=== PATIENT | male | born 1955 | race Caucasian/White ===

== ENCOUNTER → 2016-10-10 | Outpatient (CLI) | payer OTHER | END | disposition home or self-care (01) | LOC: C.LABSPEC 17:28 → C.PATHSPEC 17:38 | PROVIDERS: ATTEND Nurse Practitioner Family | DX: R31.0 Gross hematuria (principal); R82.8 Abnormal findings on cytological and histological examination of urine ==

== ENCOUNTER → 2016-10-17 | Outpatient (CLI) | payer OTHER ==
[~2016-10-17] MED LIST: OPTIRAY 320 IV PRN
--- NOTE | 2016-10-17 08:24 | DIAGNOSTIC IMAGING REPORT ---
ABDOMEN AND PELVIS CT EXAMINATION PRE AND POST INTRAVENOUS CONTRAST CT DOSE: 3177.25 mGy.cm HISTORY: Hematuria hematuria TECHNIQUE: Multiaxial CT images of the abdomen and pelvis were performed pre and post intravenous contrast enhancement. COMPARISON STUDY: None. FINDINGS: Lung bases are clear. The unenhanced component of the study shows no abnormal calcifications of the urinary tracts. There is Nodule lateral aspect upper pole right kidney measuring 1.2 cm. Density characteristics indicate a simple cyst. Several additional sub-5 mm cysts are present. These are too small to quantify. A significant space-occupying lesions of the upper urinary tracts is not appreciated. Bowel pattern is nonobstructive. Ureters normal in course and caliber. Bladder fills well with no sign deformity or filling defect. There is no significant abdominal pelvic or inguinal adenopathy. IMPRESSION: 1. Several small cysts of the kidneys. 2. Study of the urinary tracts is otherwise negative. 3. Otherwise no acute process of the abdomen or pelvis. Electronically signed by: Jay Gloria M.D. 10/17/2016 8:23 AM Dictated Date/Time: 10/17/2016 8:05 AM
== END | disposition home or self-care (01) ==
LOC: C.CTS 07:30
PROVIDERS: ATTEND Nurse Practitioner Family
DX: R31.0 Gross hematuria (principal); N28.1 Cyst of kidney, acquired

== ENCOUNTER 2018-08-24 15:46 | Observation (INO) ==
[2018-08-24] MEDS ORDERED: SODIUM CHLORIDE 0.9% 1000ML 500 ML IV ONE (16:18)
[2018-08-24 16:56] LABS: Basophils # (auto) 0.03 K/uL (0-0.2); Basophils % (auto) 0.4 %; Eosinophils # (auto) 0.03 K/uL (0-0.5); Eosinophils % (auto) 0.4 %; Hematocrit (blood only) 44.7 % (42-52); Hemoglobin 15.5 g/dL (14.0-18.0); Immature Granulocytes # (auto) 0.02 K/uL (0.00-0.02); Immature Granulocytes % (auto) 0.2 %; Lymphocytes # (auto) 1.75 K/uL (1.2-3.4); Lymphocytes % (auto) 20.8 %; Mean Corpuscular Hgb Conc 34.7 g/dL (32-36); Mean Corpuscular Volume 84.2 fL (80-100); Mean Platelet Volume 9.2 fL (7.4-10.4); Monocytes # (auto) 0.68 K/uL (0.11-0.59); Monocytes % (auto) 8.1 %; Neutrophils # (auto) 5.91 K/uL (1.4-6.5); Neutrophils % (auto) 70.1 %; Platelet Count 197 K/uL (130-400); RDW Coefficient of Variation 13.1 % (11.5-14.5); RDW Standard Deviation 39.4 fL (36.4-46.3); Red Blood Count 5.31 M/uL (4.7-6.1); White Blood Count 8.42 K/uL (4.8-10.8)
[2018-08-24 17:05] LABS: Partial Thromboplastin Ratio 0.9; Partial Thromboplastin Time 23.9 Seconds (21.0-31.0); Prothrombin Time 10.2 Seconds (9.0-12.0)
[2018-08-24 17:15] LABS: BUN Creatinine Ratio 12.3 (10-20); Calcium 9.4 mg/dl (8.5-10.1); Creatinine Clr Calc Pharmacy 105.6 ml/min; Est GFR (African American) 98.5; Potassium 3.5 mmol/L (3.5-5.1)
--- NOTE | 2018-08-24 17:21 | CT Scan Report ---
CT OF THE ABDOMEN AND PELVIS WITHOUT CONTRAST CLINICAL HISTORY: Hematuria. COMPARISON STUDY: CT of the abdomen and pelvis October 17, 2016. TECHNIQUE: Axial images of the abdomen and pelvis were obtained without IV contrast. Images were revi ewed in the axial, sagittal, and coronal planes. Automated exposure control was utilized for the hema dy. A dose lowering technique was utilized adhering to the principles of ALARA. FINDINGS: No renal, ureteral or bladder calculi are identified. There is no hydronephrosis or hydrour eter. Sensitivity for detection of urothelial lesions is diminished on this unenhanced examination. E valuation of the abdomen and pelvis is suboptimal on this unenhanced exam. A 1.7 cm lesion within the midpole the right kidney likely reflects a hyperdense cyst within correlating with prior contrast en hanced exam of October 17, 2016. There is a probable cyst within the lower pole the right kidney. The l iver, spleen, right adrenal gland and pancreas are unremarkable. 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 There is no evidence for a bowel obstruction. The appendix is nor mal. There is no ascites or lymphadenopathy. No suspicious osseous lesion is noted. Multilevel degene rative changes within the lumbar spine are incidentally noted. IMPRESSION: 1. No urinary calculi or hydronephrosis. 2. Decreased sensitivity for detection of urothelial lesions on this unenhanced exam. 3. No acute process within the abdomen or pelvis. No bowel obstruction. Normal appendix. Electronically signed by: Kimo Ramos M.D. 08/24/2018 5:20 PM
[2018-08-24 18:19] LABS: Appearance Urine Cloudy (Clear); Bilirubin Urine Negative (Negative); Color Urine Red; Glucose Urine UA Negative (Negative); Ketones Urine Negative (Negative); Leukocyte Esterase Urine Negative (Negative); Nitrite Urine Negative (Negative); Urobilinogen Urine Negative (Negative); pH Urine 7.5 (4.5-7.5)
[2018-08-24 18:24] LABS: Protein Urine 3+ (Negative)
[2018-08-24 18:31] LABS: Bacteria Urine Negative (Negative); RBC Urine >30 /hpf (0-4)
[2018-08-24 18:32] LABS: Renal Epithelial Cells Urine 0-5 /lpf (0-5)
[2018-08-24] MEDS ORDERED: SODIUM CHLORIDE 0.9% 1000ML 1,000 ML IV SCH (19:00)
--- NOTE | 2018-08-24 20:19 | Emergency Department Note ---
Entered by Andressa Walker acting as a scribe for History of Present Illness General Chief complaint: Hematuria Stated complaint: BLOOD IN URINE Time Seen by Provider: 08/24/18 16:04 Source: patient and other (geriatric nurse) Mode of arrival: wheelchair Limitations: other (patient's history of mental retardation) History of Present Illness Onset (ago): day(s) 5 Location: pelvis Radiation: non-radiation Pain Consistency: + intermittent Relieved By: + medication Exacerbated By: + none Associated symptoms: no fever/chills The patient is a 63 year old male who presents to the Emergency Room with complaints of hematuria for the past 5 days. He is accompanied by his geriatric nurse. She denies any recent fevers or vomiting. The patient was started on Doxycycline by his Urologist Dr. Contreras 4 days ago, and his geriatric nurse states the hematuria did clear up for a few days, but came back today, so they came here. HPI was given by the geriatric nurse, HPI is limited secondary to patient 's baseline mental status. Home Medications Home Medications Medication Instructions Recorded Confirmed Type aspirin [Aspirin Low Dose] 81 mg PO DAILY 08/24/18 08/24/18 History buspirone 10 mg PO TID 08/24/18 08/24/18 History calcium carbonate-vitamin D3 1 tab PO BID 08/24/18 08/24/18 History [Calcium 600 + D(3)] ciprofloxacin HCl 500 mg PO BID 08/24/18 08/24/18 History esomeprazole magnesium 40 mg PO DAILY 08/24/18 08/24/18 History hydrochlorothiazide 12.5 mg PO DAILY 08/24/18 08/24/18 History isosorbide mononitrate 30 mg PO HS 08/24/18 08/24/18 History magnesium oxide 400 mg PO DAILY 08/24/18 08/24/18 History metoprolol tartrate 12.5 mg PO BID 08/24/18 08/24/18 History nitroglycerin 0.4 mg SUBLINGUAL UD 08/24/18 08/24/18 History oxcarbazepine 150 mg PO TID 08/24/18 08/24/18 History polysaccharide iron complex 150 mg PO BID 08/24/18 08/24/18 History [iFerex 150] sennosides [Senna Lax] 8.6 mg PO BID 08/24/18 08/24/18 History simvastatin 20 mg PO DAILY 08/24/18 08/24/18 History sodium chloride-aloe vera [Howard 1 spray INTRANASAL HS 08/24/18 08/24/18 History Saline Gel] tamsulosin 0.4 mg PO HS 08/24/18 08/24/18 History Allergies Allergy/AdvReac Type Severity Reaction Status Date / Time No Known Allergies Allergy Unverified 08/24/18 17:21 Past Med/Surg History Medical History UTI (urinary tract infection) Social History Feels Safe at Home: Yes Smoking Status: Never smoker Review of Systems See HPI for pertinent positives & negatives. Other (ROS is limited secondary to patients history of mental retardation) Physical Exam Vital Signs Vital Signs - 24 hr 08/24/18 16:06 08/24/18 17:40 08/24/18 19:24 Temperature 37.2 C Temperature Source Oral Sepsis Recent Fever Within 48 Hours No Sepsis New/Unexplained Change in Mental Status No Sepsis Action Taken by Nursing No Action Required Pulse Rate 69 Pulse Rate [Finger] 68 78 Pulse Rhythm Regular Pulse Rhythm [Finger] Regular Regular Pulse Strength Normal Pulse Strength [Finger] Normal Normal Respiratory Rate 18 18 18 Respiratory Effort / Characteristics Non-Labored Spontaneous Non-Labored Spontaneous Non-Labored Spontaneous Respiratory Depth Normal Normal Normal Respiratory Pattern Regular Regular Regular Blood Pressure 144/78 H Blood Pressure [Right Arm] 115/64 127/81 Blood Pressure Mean 100 Blood Pressure Mean [Right Arm] 81 96 Blood Pressure Position Sitting Blood Pressure Position [Right Arm] Sitting Pulse Oximetry 97 98 97 Oxygen Delivery Method Room Air Room Air Room Air 08/24/18 20:11 Temperature Temperature Source Sepsis Recent Fever Within 48 Hours Sepsis New/Unexplained Change in Mental Status Sepsis Action Taken by Nursing Pulse Rate Pulse Rate [Finger] 79 Pulse Rhythm Pulse Rhythm [Finger] Regular Pulse Strength Pulse Strength [Finger] Normal Respiratory Rate 18 Respiratory Effort / Characteristics Non-Labored Respiratory Depth Normal Respiratory Pattern Blood Pressure Blood Pressure [Right Arm] 155/81 H Blood Pressure Mean Blood Pressure Mean [Right Arm] 105 Blood Pressure Position Blood Pressure Position [Right Arm] Pulse Oximetry 94 Oxygen Delivery Method Room Air GENERAL: He does not appear distressed. HENT: Exam performed. - Head: Normocephalic and atraumatic. - Right Ear: External ear normal. No mastoid tenderness. - Left Ear: External ear normal. No mastoid tenderness. - Mouth/Throat: The oropharynx is clear and moist. No trismus in the jaw. No dental abscesses or uvula swelling. No oropharyngeal exudate or tonsillar abscesses. EYES: Conjunctivae and EOM are normal. Pupils are equal, round, and reactive to light. Right eye exhibits no discharge. Left eye exhibits no discharge. No scleral icterus. NECK: Normal range of motion. Neck supple. No JVD present. No spinous process tenderness present. No carotid bruit present. No rigidity. No tracheal deviation and normal range of motion present. No Brudzinski's sign and no Kernig 's sign noted. CV: Normal rate, regular rhythm, normal heart sounds and intact distal pulses. There is no peripheral edema. Palpable radial pulses bue. PULM/CHEST: Effort normal and breath sounds normal. No respiratory distress. No stridor. He has no wheezes. He has no rales. - Chest Wall: He exhibits no tenderness. ABD: The abdomen is soft. Bowel sounds are normal. He has no distension. No mass is present. There is no tenderness. There is no rebound, no guarding, no Krishna's sign and no tenderness at McBurney's point. Rovsig negative. No CVA tenderness. : No pain on palpation of either testicle. There is mild dry blood coming from the urethral meatus. MUSC/SKEL: Normal range of motion. There is no peripheral edema, tenderness or deformity. LYMPH: No cervical adenopathy. NEURO: The patient is at his normal baseline, motor and sensation are grossly intact. SKIN: Skin is warm and dry. He is not diaphoretic. Course 161: Past medical records reviewed. The patient was evaluated in room C2, and a complete history and physical examination were performed. 1803: Nursing informed me the patient is having pure hematuria. 1924: I discussed the patients case with Dr. Livingston, Urology. We are both in agreement the patient remain on his antibiotic, rest and drink plenty of fluids. We both agree that no catheter should be placed at this time as the patient is able to pass urine, not passing clots, and given his history of the DDMR there is high risk this would irritate the patient more and he is at risk for pulling out a catheter causing further damage and hematuria. I reevaluated the patient. His vitals are stable. He is continuing to pass bright red blood. Labs are within normal limits with exception of urine which shows blood. Sodium is 129. Given his hematuria and hyponatremia, the patient will be admitted to the hospital service. I discussed the patients case with Dr. Hartman, [facility] Hospitalist. The patient will be further evaluated. Consultations Consultation #1: I discussed the patients case with Dr. Livingston, Urology. We are both in agreement the patient remain on his antibiotic, rest and drink plenty of fluids. We agree the patient will be admitted to the hospital medicine service as he is not comfortable going home. Time: 18:43 Consultation #2: I discussed the patients case with Dr. Hartman, [facility] Hospitalist. The patient will be further evaluated. Time: 19:25 Administered Medications Sodium Chloride (Nss 1000ml) 1,000 mls @ 125 mls/hr IV .Q8H FREDY Stop: 09/23/18 18:59 Last Admin: 08/24/18 19:21 Dose: 125 mls/hr Discontinued Medications Sodium Chloride (Nss 1000ml) 500 mls @ 999 mls/hr IV .Q31M ONE Stop: 08/24/18 16:48 Last Infusion: 08/24/18 17:32 Dose: 0 mls/hr Admin: 08/24/18 17:01 Dose: 999 mls/hr Medical Decision Making Medical Records Attestation: I reviewed the patient's medical records. Home Medications Current Medication List: was personally reviewed by me Laboratory Data Attestation: I reviewed the patient's lab results. Result diagrams: 08/24/18 16:45 08/24/18 16:45 Lab Results 08/24/18 08/24/18 08/24/18 Range/Units 16:45 16:45 16:45 WBC 8.42 (4.8-10.8) K/uL RBC 5.31 (4.7-6.1) M/uL Hgb 15.5 (14.0-18.0) g/dL Hct 44.7 (42-52) % MCV 84.2 (80-100) fL MCH 29.2 (25-34) pg MCHC 34.7 (32-36) g/dL RDW Std Deviation 39.4 (36.4-46.3) fL RDW Coeff of Mau 13.1 (11.5-14.5) % Plt Count 197 (130-400) K/uL MPV 9.2 (7.4-10.4) fL Immature Gran % (Auto) 0.2 % Neut % (Auto) 70.1 % Lymph % (Auto) 20.8 % [place] % (Auto) 8.1 % Eos % (Auto) 0.4 % Baso % (Auto) 0.4 % Immature Gran # (Auto) 0.02 (0.00-0.02) K/uL Neut # (Auto) 5.91 (1.4-6.5) K/uL Lymph # (Auto) 1.75 (1.2-3.4) K/uL [place] # (Auto) 0.68 H (0.11-0.59) K/uL Eos # (Auto) 0.03 (0-0.5) K/uL Baso # (Auto) 0.03 (0-0.2) K/uL PT 10.2 (9.0-12.0) Seconds INR 1.0 (0.9-1.1) APTT 23.9 (21.0-31.0) Seconds PTT Ratio 0.9 Sodium 129 L (136-145) mmol/L Potassium 3.5 (3.5-5.1) mmol/L Chloride 90 L (98-107) mmol/L Carbon Dioxide 30 (21-32) mmol/L Anion Gap 9.0 (3-11) BUN 12 (7-18) mg/dl Creatinine 0.96 (0.6-1.4) mg/dl Est Cr Clr Drug Dosing 105.6 ml/min Est GFR ( Amer) 98.5 Est GFR (Non-Af Amer) 85.0 BUN/Creatinine Ratio 12.3 (10-20) Glucose 114 H (70-99) mg/dl Lactate (0.4-2.0) mmol/L Calcium 9.4 (8.5-10.1) mg/dl Lipase 105 (73-393) U/L Urine Color Urine Appearance (Clear) Urine pH (4.5-7.5) Ur Specific [place] (1.000-1.030) Urine Protein (Negative) Urine Glucose (UA) (Negative) Urine Ketones (Negative) Urine Blood (Negative) Urine Nitrite (Negative) Urine Bilirubin (Negative) Urine Urobilinogen (Negative) Ur Leukocyte Esterase (Negative) Urine RBC (0-4) /hpf Urine WBC (0-5) /hpf Ur Epithelial Cells (0-5) /lpf Ur Renal Epithelial Cell (0-5) /lpf Urine Bacteria (Negative) 08/24/18 08/24/18 Range/Units 16:45 18:00 WBC (4.8-10.8) K/uL RBC (4.7-6.1) M/uL Hgb (14.0-18.0) g/dL Hct (42-52) % MCV (80-100) fL MCH (25-34) pg MCHC (32-36) g/dL RDW Std Deviation (36.4-46.3) fL RDW Coeff of Mau (11.5-14.5) % Plt Count (130-400) K/uL MPV (7.4-10.4) fL Immature Gran % (Auto) % Neut % (Auto) % Lymph % (Auto) % [place] % (Auto) % Eos % (Auto) % Baso % (Auto) % Immature Gran # (Auto) (0.00-0.02) K/uL Neut # (Auto) (1.4-6.5) K/uL Lymph # (Auto) (1.2-3.4) K/uL [place] # (Auto) (0.11-0.59) K/uL Eos # (Auto) (0-0.5) K/uL Baso # (Auto) (0-0.2) K/uL PT (9.0-12.0) Seconds INR (0.9-1.1) APTT (21.0-31.0) Seconds PTT Ratio Sodium (136-145) mmol/L Potassium (3.5-5.1) mmol/L Chloride (98-107) mmol/L Carbon Dioxide (21-32) mmol/L Anion Gap (3-11) BUN (7-18) mg/dl Creatinine (0.6-1.4) mg/dl Est Cr Clr Drug Dosing ml/min Est GFR ( Amer) Est GFR (Non-Af Amer) BUN/Creatinine Ratio (10-20) Glucose (70-99) mg/dl Lactate 1.3 (0.4-2.0) mmol/L Calcium (8.5-10.1) mg/dl Lipase (73-393) U/L Urine Color Red Urine Appearance Cloudy H (Clear) Urine pH 7.5 (4.5-7.5) Ur Specific [place] 1.020 (1.000-1.030) Urine Protein 3+ H (Negative) Urine Glucose (UA) Negative (Negative) Urine Ketones Negative (Negative) Urine Blood 3+ H (Negative) Urine Nitrite Negative (Negative) Urine Bilirubin Negative (Negative) Urine Urobilinogen Negative (Negative) Ur Leukocyte Esterase Negative (Negative) Urine RBC >30 H (0-4) /hpf Urine WBC 10-30 H (0-5) /hpf Ur Epithelial Cells 0-5 (0-5) /lpf Ur Renal Epithelial Cell 0-5 (0-5) /lpf Urine Bacteria Negative (Negative) Imaging Data Radiologist's Impression: Radiology results as stated below per my review and the radiologist's interpretation: CT OF THE ABDOMEN AND PELVIS WITHOUT CONTRAST CLINICAL HISTORY: Hematuria. COMPARISON STUDY: CT of the abdomen and pelvis October 17, 2016. TECHNIQUE: Axial images of the abdomen and pelvis were obtained without IV contrast. Images were reviewed in the axial, sagittal, and coronal planes. Automated exposure control was utilized for the study. A dose lowering technique was utilized adhering to the principles of ALARA. FINDINGS: No renal, ureteral or bladder calculi are identified. There is no hydronephrosis or hydroureter. Sensitivity for detection of urothelial lesions is diminished on this unenhanced examination. Evaluation of the abdomen and pelvis is suboptimal on this unenhanced exam. A 1.7 cm lesion within the midpole the right kidney likely reflects a hyperdense cyst within correlating with prior contrast enhanced exam of October 17, 2016. There is a probable cyst within the lower pole the right kidney. The liver, spleen, right adrenal gland and pancreas are unremarkable. 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 There is no evidence for a bowel obstruction. The appendix is normal. There is no ascites or lymphadenopathy. No suspicious osseous lesion is noted. Multilevel degenerative changes within the lumbar spine are incidentally noted. IMPRESSION: 1. No urinary calculi or hydronephrosis. 2. Decreased sensitivity for detection of urothelial lesions on this unenhanced exam. 3. No acute process within the abdomen or pelvis. No bowel obstruction. Normal appendix. Electronically signed by: Kimo Ramos M.D. 08/24/2018 5:20 PM Blood Pressure Blood Pressure Findings: Normal blood pressure Blood Pressure Disposition: further management by hospitalist [facility] Narrative I discussed the patients case with Dr. Livingston, Urology. We are both in agreement the patient remain on his antibiotic, rest and drink plenty of fluids. We both agree that no catheter should be placed at this time as the patient is able to pass urine, not passing clots, and given his history of the DDMR there is high risk this would irritate the patient more and he is at risk for pulling out a catheter causing further damage and hematuria. I reevaluated the patient. His vitals are stable. He is continuing to pass bright red blood. Labs are within normal limits with exception of urine which shows blood. Sodium is 129. Given his hematuria and hyponatremia, the patient will be admitted to the hospital service. I discussed the patients case with Dr. Hartman, [facility] Hospitalist. The patient will be further evaluated. Impression & Plan Hyponatremia, Hematuria Discharge Plan Visit Data Chief Complaint: Hematuria Stated Complaint: BLOOD IN URINE ED Provider: Emilio Farrell Discharge Problem: Hyponatremia, Hematuria Patient Disposition: Being Evaluated by Hospitalist Forms Stand Alone Forms: My [facility] Prescriptions Prescriptions: No Action oxcarbazepine 150 mg tablet 150 mg PO TID RF: 0 sennosides [Senna Lax] 8.6 mg Tablet 8.6 mg PO BID RF: 0 polysaccharide iron complex [iFerex 150] 150 mg iron Capsule 150 mg PO BID RF: 0 isosorbide mononitrate 30 mg Tablet Extended Release 24 Hr 30 mg PO HS RF: 0 ciprofloxacin HCl 500 mg tablet 500 mg PO BID RF: 0 aspirin [Aspirin Low Dose] 81 mg Tablet,Delayed Release (Dr/Ec) 81 mg PO DAILY RF: 0 tamsulosin 0.4 mg capsule 0.4 mg PO HS RF: 0 simvastatin 20 mg Tablet 20 mg PO DAILY RF: 0 esomeprazole magnesium 40 mg capsule,delayed release(DR/EC) 40 mg PO DAILY RF: 0 buspirone 10 mg tablet 10 mg PO TID RF: 0 hydrochlorothiazide 12.5 mg Capsule 12.5 mg PO DAILY RF: 0 nitroglycerin 0.4 mg Tablet, Sublingual 0.4 mg Sublingual UD RF: 0 metoprolol tartrate 25 mg tablet 12.5 mg PO BID RF: 0 sodium chloride-aloe vera [Howard Saline Gel] [place]on,Non-Aerosol 1 spray INTRANASAL HS RF: 0 calcium carbonate-vitamin D3 [Calcium 600 + D(3)] 600 mg(1,500mg) -400 unit Tablet 1 tab PO BID RF: 0 magnesium oxide 400 mg magnesium Tablet 400 mg PO DAILY RF: 0 Referrals Referrals: Bubba Howard [Primary Care Provider] - The scribe's documentation has been prepared under my direction and personally reviewed by me in its entirety. I confirm that the note above accurately reflects all work, treatment, procedures, and medical decision making performed by me.
--- NOTE | 2018-08-24 21:31 | History & Physical Report ---
Date of Service August 24, 2018 Assessment & Plan (1) Hematuria: Patient with history of the same. Follows with Urology. He is on ASA daily. Per report, larger amount of hematuria today than before. Patient is hemodynamically stable. H/H = 15.5/44.7, passing urine without difficulty. Ddx to include infection, malignancy. -Observation to medical floor -Monitor CBC -Monitor strict I/Os - will place Garza if patient is unable to spontaneously void -Hold ASA -Urology consultation - appreciate assistance with this case. Will keep patient NPO after midnight in case of cystoscopy in AM Present on Admission?: Yes (2) UTI (urinary tract infection): Patient presently being treated for UTI with Cipro 500mg po BID x 7 day course (today is day #3/7. Course to end on 08/28/18). -Continue Cipro 500mg po BID (3) Hyponatremia: Moderate hyponatremia with Nh=658. No prior record of Na. Patient appears euvolemic on exam. No seizure. No change in mental status. Ddx to include SIADH, low solute intake, medication effects - patient is taking Busbirone, HCTZ and trileptal which can all contribute to hyponatremia. He was given NSS in the ER which may skew lab results. -Check urine and serum osm -Check urine electrolytes -Repeat chemistry in AM -Hold HCTZ for now Present on Admission?: Yes (4) Hypertension: Blood pressure presenlty controlled, 115/64 -Hold Metoprolol for now in setting of bleed -Hold HCTZ -Continue Imdur Present on Admission?: Yes (5) Hyperlipidemia: Chronic -Continue Simvastatin (6) BPH (benign prostatic hyperplasia): Patient is passing urine without difficulty -Continue Flomax 0.4mg po daily (7) Intellectual disability: Patient with behavioral disturbance -Continue Trileptal 150mg po TID - this may need to be adjusted d/t hypoNa -Continue Buspirone - may need to be adjusted d/t hypoNa F/E/N - heplock, monitor electrolytes and replete as needed, continue PO Magnesium at home dose, Na management as above, NPO after midnight for possible cysto in AM Ppx - Low risk for DVT, encourage ambulation Code - Full Dispo -Admit to med-surge History of Present Illness Chief Complaint: Gross hematuria Primary Care Provider: Bubba Howard Patient is a 63yo male with history of BPH, HTN, HLP and developmental delay presenting with gross hematuria. Majority of history obtained through discussion with patient's case managers as patient is unable to provide reliable history. Per report, patient with a longstanding history of gross hematuria. He established care with Urology in October 2016. He follows with Dr. Contreras. Patient had a cystoscopy performed 26 Mar 2018 which revealed wide caliber thin urethral strictures x 2. Normal bladder without tumor or other abnormalities. No intervention was performed. Patient was seen by Dr. Contreras for a UTI. He was started on a 7-day course of Cipro 500mg po BID which started on 08/22/18. He had a large volume of gross hematuria on 08/22/18 causing him to leave his day program. On 08/23/18 no bleeding was reported. However, today patient again had gross hematuria that was not resolving. Patient is unable to say if clots were present. He denies fevers, chills, abdominal or flank pain. Denies dysuria or difficulty urinating. Denies CP, palpitations, dyspnea or dizziness. No additional complaints at this time. ER Course: NSS x 1500mL Allergies Allergy/AdvReac Type Severity Reaction Status Date / Time No Known Allergies Allergy Unverified 08/24/18 17:21 Home Medications Home Medications Medication Instructions Recorded Confirmed Type aspirin [Aspirin Low Dose] 81 mg PO DAILY 08/24/18 08/24/18 History buspirone 10 mg PO TID 08/24/18 08/24/18 History calcium carbonate-vitamin D3 1 tab PO BID 08/24/18 08/24/18 History [Calcium 600 + D(3)] ciprofloxacin HCl 500 mg PO BID 08/24/18 08/24/18 History esomeprazole magnesium 40 mg PO DAILY 08/24/18 08/24/18 History hydrochlorothiazide 12.5 mg PO DAILY 08/24/18 08/24/18 History isosorbide mononitrate 30 mg PO HS 08/24/18 08/24/18 History magnesium oxide 400 mg PO DAILY 08/24/18 08/24/18 History metoprolol tartrate 12.5 mg PO BID 08/24/18 08/24/18 History nitroglycerin 0.4 mg SUBLINGUAL UD 08/24/18 08/24/18 History oxcarbazepine 150 mg PO TID 08/24/18 08/24/18 History polysaccharide iron complex 150 mg PO BID 08/24/18 08/24/18 History [iFerex 150] sennosides [Senna Lax] 8.6 mg PO BID 08/24/18 08/24/18 History simvastatin 20 mg PO DAILY 08/24/18 08/24/18 History sodium chloride-aloe vera [[place] 1 spray INTRANASAL HS 08/24/18 08/24/18 History Saline Gel] tamsulosin 0.4 mg PO HS 08/24/18 08/24/18 History Past Med/Surg History Medical History Hematuria Cystoscopy performed March 2018. Urethral stricture x 2, normal bladder. Hyperlipidemia Hypertension BPH (benign prostatic hyperplasia) UTI (urinary tract infection) Intellectual disability No significant past surgical history Family History Other Family history non-contributory Social History Current Living Situation: Other Current Living Situation Comment: lives in senior care, has personal care aids 27/02 Other Information That Helps Us Care for You: No Feels Safe at Home: Yes Safety Concerns: Feels Safe At This Time Smoking Status: Never smoker Hx Alcohol Use: No Hx Substance Use: No Beliefs That Will Affect Care: None Preferred Language: Spanish Communication Ability: Impaired Silo Painter Required: No Review of Systems All systems reviewed & are unremarkable except as noted in HPI & below Physical Exam 2 Vital Signs (Past 24 Hours): Last Vital Signs Temp 37.2 C 08/24/18 16:06 Pulse 79 08/24/18 20:11 Resp 18 08/24/18 20:11 BP 155/81 H 08/24/18 20:11 Pulse Ox 94 08/24/18 20:11 Physical Exam: General: patient resting comfortably, NAD, non-toxic in appearance Skin: warm, dry, intact, no rashes or lesions HEENT: NC/AT, PERRL, EOMI, anicteric sclera, conjunctiva without injection, external ear normal to inspection and nontender, nares patent, moist mucus membranes, dentition intact, no oropharyngeal lesions, neck supple, trachea midline, no LAD, no thyromegaly, no JVD Heart: +S1/S2, regular, no m/r/g Lungs: equal air entry bilaterally, no rales/rhonchi/wheezes Abd: +BS, soft, NT/ND, no masses/organomegaly/ascites, no suprapubic tenderness , no flank pain, no penile bleeding Ext: warm, 2+ pulses in UE/LE bilaterally, no clubbing/cyanosis or edema Neuro: nonfocal, patient AA&O x 4, speech intact, no facial droop, moving all extremities on command with equal strength 5/5 Results & Data Laboratory Results Lab Results 08/24/18 08/24/18 08/24/18 Range/Units 16:45 16:45 16:45 WBC 8.42 (4.8-10.8) K/uL RBC 5.31 (4.7-6.1) M/uL Hgb 15.5 (14.0-18.0) g/dL Hct 44.7 (42-52) % MCV 84.2 (80-100) fL MCH 29.2 (25-34) pg MCHC 34.7 (32-36) g/dL RDW Std Deviation 39.4 (36.4-46.3) fL RDW Coeff of Mau 13.1 (11.5-14.5) % Plt Count 197 (130-400) K/uL MPV 9.2 (7.4-10.4) fL Immature Gran % (Auto) 0.2 % Neut % (Auto) 70.1 % Lymph % (Auto) 20.8 % [place] % (Auto) 8.1 % Eos % (Auto) 0.4 % Baso % (Auto) 0.4 % Immature Gran # (Auto) 0.02 (0.00-0.02) K/uL Neut # (Auto) 5.91 (1.4-6.5) K/uL Lymph # (Auto) 1.75 (1.2-3.4) K/uL [place] # (Auto) 0.68 H (0.11-0.59) K/uL Eos # (Auto) 0.03 (0-0.5) K/uL Baso # (Auto) 0.03 (0-0.2) K/uL PT 10.2 (9.0-12.0) Seconds INR 1.0 (0.9-1.1) APTT 23.9 (21.0-31.0) Seconds PTT Ratio 0.9 Sodium 129 L (136-145) mmol/L Potassium 3.5 (3.5-5.1) mmol/L Chloride 90 L (98-107) mmol/L Carbon Dioxide 30 (21-32) mmol/L Anion Gap 9.0 (3-11) BUN 12 (7-18) mg/dl Creatinine 0.96 (0.6-1.4) mg/dl Est Cr Clr Drug Dosing 105.6 ml/min Est GFR ( Amer) 98.5 Est GFR (Non-Af Amer) 85.0 BUN/Creatinine Ratio 12.3 (10-20) Glucose 114 H (70-99) mg/dl Lactate (0.4-2.0) mmol/L Calcium 9.4 (8.5-10.1) mg/dl Magnesium (1.8-2.4) mg/dl Lipase 105 (73-393) U/L Urine Color Urine Appearance (Clear) Urine pH (4.5-7.5) Ur Specific [place] (1.000-1.030) Urine Protein (Negative) Urine Glucose (UA) (Negative) Urine Ketones (Negative) Urine Blood (Negative) Urine Nitrite (Negative) Urine Bilirubin (Negative) Urine Urobilinogen (Negative) Ur Leukocyte Esterase (Negative) Urine RBC (0-4) /hpf Urine WBC (0-5) /hpf Ur Epithelial Cells (0-5) /lpf Ur Renal Epithelial Cell (0-5) /lpf Urine Bacteria (Negative) 08/24/18 08/24/18 08/24/18 Range/Units 16:45 18:00 21:03 WBC (4.8-10.8) K/uL RBC (4.7-6.1) M/uL Hgb (14.0-18.0) g/dL Hct (42-52) % MCV (80-100) fL MCH (25-34) pg MCHC (32-36) g/dL RDW Std Deviation (36.4-46.3) fL RDW Coeff of Mau (11.5-14.5) % Plt Count (130-400) K/uL MPV (7.4-10.4) fL Immature Gran % (Auto) % Neut % (Auto) % Lymph % (Auto) % [place] % (Auto) % Eos % (Auto) % Baso % (Auto) % Immature Gran # (Auto) (0.00-0.02) K/uL Neut # (Auto) (1.4-6.5) K/uL Lymph # (Auto) (1.2-3.4) K/uL [place] # (Auto) (0.11-0.59) K/uL Eos # (Auto) (0-0.5) K/uL Baso # (Auto) (0-0.2) K/uL PT (9.0-12.0) Seconds INR (0.9-1.1) APTT (21.0-31.0) Seconds PTT Ratio Sodium (136-145) mmol/L Potassium (3.5-5.1) mmol/L Chloride (98-107) mmol/L Carbon Dioxide (21-32) mmol/L Anion Gap (3-11) BUN (7-18) mg/dl Creatinine (0.6-1.4) mg/dl Est Cr Clr Drug Dosing ml/min Est GFR ( Amer) Est GFR (Non-Af Amer) BUN/Creatinine Ratio (10-20) Glucose (70-99) mg/dl Lactate 1.3 (0.4-2.0) mmol/L Calcium (8.5-10.1) mg/dl Magnesium 1.9 (1.8-2.4) mg/dl Lipase (73-393) U/L Urine Color Red Urine Appearance Cloudy H (Clear) Urine pH 7.5 (4.5-7.5) Ur Specific [place] 1.020 (1.000-1.030) Urine Protein 3+ H (Negative) Urine Glucose (UA) Negative (Negative) Urine Ketones Negative (Negative) Urine Blood 3+ H (Negative) Urine Nitrite Negative (Negative) Urine Bilirubin Negative (Negative) Urine Urobilinogen Negative (Negative) Ur Leukocyte Esterase Negative (Negative) Urine RBC >30 H (0-4) /hpf Urine WBC 10-30 H (0-5) /hpf Ur Epithelial Cells 0-5 (0-5) /lpf Ur Renal Epithelial Cell 0-5 (0-5) /lpf Urine Bacteria Negative (Negative) Diagnostic Findings CT OF THE ABDOMEN AND PELVIS WITHOUT CONTRAST CLINICAL HISTORY: Hematuria. COMPARISON STUDY: CT of the abdomen and pelvis October 17, 2016. TECHNIQUE: Axial images of the abdomen and pelvis were obtained without IV contrast. Images were reviewed in the axial, sagittal, and coronal planes. Automated exposure control was utilized for the study. A dose lowering technique was utilized adhering to the principles of ALARA. FINDINGS: No renal, ureteral or bladder calculi are identified. There is no hydronephrosis or hydroureter. Sensitivity for detection of urothelial lesions is diminished on this unenhanced examination. Evaluation of the abdomen and pelvis is suboptimal on this unenhanced exam. A 1.7 cm lesion within the midpole the right kidney likely reflects a hyperdense cyst within correlating with prior contrast enhanced exam of October 17, 2016. There is a probable cyst within the lower pole the right kidney. The liver, spleen, right adrenal gland and pancreas are unremarkable. 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 There is no evidence for a bowel obstruction. The appendix is normal. There is no ascites or lymphadenopathy. No suspicious osseous lesion is noted. Multilevel degenerative changes within the lumbar spine are incidentally noted. IMPRESSION: 1. No urinary calculi or hydronephrosis. 2. Decreased sensitivity for detection of urothelial lesions on this unenhanced exam. 3. No acute process within the abdomen or pelvis. No bowel obstruction. Normal appendix. Electronically signed by: Kimo Ramos M.D. 08/24/2018 5:20 PM Code Status & VTE Plan Code Status FULL VTE Prophylaxis Plan VTE Prophylaxis will be ordered: No Reason for no VTE drug order: Treatment not indicated Reason for no VTE mechanical prophylaxis: Treatment not indicated Critical Care Time Critical Care Time: No _ (1) Hematuria Hematuria type: gross Qualified Code(s): R31.0 - Gross hematuria (2) UTI (urinary tract infection) Urinary tract infection type: site unspecified Hematuria presence: with hematuria Qualified Code(s): N39.0 - Urinary tract infection, site not specified; R31.9 - Hematuria, unspecified (3) Hypertension Hypertension type: essential hypertension Qualified Code(s): I10 - Essential (primary) hypertension (4) Hyperlipidemia Hyperlipidemia type: unspecified Qualified Code(s): E78.5 - Hyperlipidemia, unspecified (5) BPH (benign prostatic hyperplasia) Lower urinary tract symptom presence: symptoms absent Qualified Code(s): N40.0 - Benign prostatic hyperplasia without lower urinary tract symptoms
[2018-08-24] MEDS: TAMSULOSIN HCL 0.4 MG CAP PO SCH (21:53)
[2018-08-24] MEDS: ISOSORBIDE MONO EXTENDED REL 30 MG TABCR PO SCH (22:01)
[2018-08-24] MEDS: IRON POLYSACCHARIDE COMPLEX 150 MG CAPSULE PO SCH (22:01)
[2018-08-24] MEDS: CALCIUM 600MG + VIT D 400 IU TAB PO SCH (22:01)
[2018-08-24] MEDS: SENNA 8.6 MG TAB PO SCH (22:02)
[2018-08-24] MEDS: OXcarbazepine 150 MG TABLET PO SCH (22:02)
[2018-08-24] MEDS: CIPROFLOXACIN 500 MG TAB PO SCH (22:03)
[2018-08-24] MEDS: SODIUM CHLORIDE 0.65% NA SOLN 45 ML (OCEAN) SCH (22:03)
[2018-08-24] MEDS: SODIUM CHLORIDE 0.9% 1000ML 1,000 ML IV SCH (23:23)
[2018-08-25 06:51] LABS: Basophils # (auto) 0.02 K/uL (0-0.2); Basophils % (auto) 0.2 %; Hematocrit (blood only) 42.3 % (42-52); Hemoglobin 14.8 g/dL (14.0-18.0); Immature Granulocytes # (auto) 0.02 K/uL (0.00-0.02); Immature Granulocytes % (auto) 0.2 %; Lymphocytes # (auto) 1.64 K/uL (1.2-3.4); Lymphocytes % (auto) 17.5 %; Mean Corpuscular Volume 84.4 fL (80-100); Monocytes # (auto) 0.61 K/uL (0.11-0.59); Monocytes % (auto) 6.5 %; Neutrophils # (auto) 7.08 K/uL (1.4-6.5); Neutrophils % (auto) 75.6 %; Platelet Count 196 K/uL (130-400); RDW Coefficient of Variation 13.2 % (11.5-14.5); RDW Standard Deviation 40.1 fL (36.4-46.3); Red Blood Count 5.01 M/uL (4.7-6.1); White Blood Count 9.37 K/uL (4.8-10.8)
[2018-08-25 07:28] LABS: Creatinine Clr Calc Pharmacy 107.7 ml/min; Est GFR (African American) 99.7; Est GFR (Non-African American) 86.1
[2018-08-25] MEDS: SODIUM CHLORIDE 0.9% 1000ML 1,000 ML IV SCH (07:51)
--- NOTE | 2018-08-25 08:39 | Urology Consultation ---
Date of Consultation August 25, 2018 Assessment & Plan (1) Hematuria: A/P 63 yo male with gross hematuria. Hold ASA. As noted, in the absence of evidence of clot retention or the need for transfusion would avoid acute surgical intervention. Advance diet, monitor I& Os. It seems hematuria is improving, but it would not be surprising for it to recur intermittently. I suspect a bliss would be counterproductive and likely lead to trauma and more hematuria in this cognitively impaired individual. Pending f/u in office with Dr. Contreras Sep 2018. Correction of hyponatremia per hospitalist service. Thank you for allowing us to participate in this patient's care. Please contact our service as needed with any questions or concerns. Present on Admission?: Yes History of Present Illness Reason for Consultation: Gross hematuria Attending Physician: Meenu Hartman, DO History of Present Illness 63 yo male, well known to service who presents to ER due to recurrent gross hematuria. He was found to be hyponatremic on ER labs and was admitted for correction. Patient is unable to give significant history due to cognitive deficits. He has seen Dr. Contreras in Mar 2018, underwent hematuria workup at that time demonstrating no worrisome findings, at risk urethra. He has been in contact with our office - seen lack of clot retention or s/s of anemia recommendation was observation. Patient presented to the ER for further evaluation. consult requested for admission. Admission CT scan noncontrast reviewed - no worrisome findings, no evidence of significant retained clot in bladder or retention of urine. Patient gives limited history on interview today, care d/w nursing. Per their report appearance of urine has been improving , sometimes hematuric, sometimes clear. No sample for review but staining in brief c/w modest amounts of old blood. Allergies Allergy/AdvReac Type Severity Reaction Status Date / Time No Known Allergies Allergy Unverified 08/24/18 17:21 Home Medications Home Medications Medication Instructions Recorded Confirmed Type aspirin [Aspirin Low Dose] 81 mg PO DAILY 08/24/18 08/24/18 History buspirone 10 mg PO TID 08/24/18 08/24/18 History calcium carbonate-vitamin D3 1 tab PO BID 08/24/18 08/24/18 History [Calcium 600 + D(3)] ciprofloxacin HCl 500 mg PO BID 08/24/18 08/24/18 History esomeprazole magnesium 40 mg PO DAILY 08/24/18 08/24/18 History hydrochlorothiazide 12.5 mg PO DAILY 08/24/18 08/24/18 History isosorbide mononitrate 30 mg PO HS 08/24/18 08/24/18 History magnesium oxide 400 mg PO DAILY 08/24/18 08/24/18 History metoprolol tartrate 12.5 mg PO BID 08/24/18 08/24/18 History nitroglycerin 0.4 mg SUBLINGUAL UD 08/24/18 08/24/18 History oxcarbazepine 150 mg PO TID 08/24/18 08/24/18 History polysaccharide iron complex 150 mg PO BID 08/24/18 08/24/18 History [iFerex 150] sennosides [Senna Lax] 8.6 mg PO BID 08/24/18 08/24/18 History simvastatin 20 mg PO DAILY 08/24/18 08/24/18 History sodium chloride-aloe vera [Paradox 1 spray INTRANASAL HS 08/24/18 08/24/18 History Saline Gel] tamsulosin 0.4 mg PO HS 08/24/18 08/24/18 History Patient History Medical History Hematuria Cystoscopy performed March 2018. Urethral stricture x 2, normal bladder. Hyperlipidemia Hypertension BPH (benign prostatic hyperplasia) UTI (urinary tract infection) Intellectual disability No significant past surgical history Social History Current Living Situation: Other Current Living Situation Comment: lives in alf, has personal care aids 27/02 Other Information That Helps Us Care for You: No Feels Safe at Home: Yes Safety Concerns: Feels Safe At This Time Smoking Status: Never smoker Hx Alcohol Use: No Hx Substance Use: No Beliefs That Will Affect Care: None Preferred Language: Danish Communication Ability: Impaired Silver Designer Required: No Review of Systems limited due to patient Constitutional: no fever and no chills Gastrointestinal: no vomiting and no hematemesis Genitourinary (Male): + hematuria; no difficulty urinating, no urinary hesitancy and no decreased urination Neurologic: no paralysis congitive deficit Hematologic / Lymphatic: + easy bleeding Physical Exam 2 Vital Signs (Past 24 Hours): Last Vital Signs Temp 37.4 C 08/25/18 07:21 Pulse 100 H 08/25/18 07:21 Resp 18 08/25/18 07:21 BP 149/79 H 08/25/18 07:21 Pulse Ox 95 08/25/18 07:21 Constitutional: well developed and well nourished; no acute distress Eyes: eyes not dysmorphic Neck: trachea midline; no anterior neck swelling Respiratory: normal respiratory effort; no respiratory distress and does not use accessory muscles Cardiovascular: Vessels: radial pulses present Gastrointestinal (Abdomen): Inspection/Auscultation: abdomen normal to inspection; abdomen not distended Percussion/Palpation: abdomen soft; abdomen nontender Skin: normal turgor Neurologic: awake; no focal motor deficits Psychiatric: Orientation: cooperative; + not oriented x 3 Genitourinary: Normal phallus, buried, no bleeding from meatus, mild edema Results & Data Laboratory Results Laboratory Results - last 48 hr 08/24/18 08/24/18 08/24/18 16:45 16:45 16:45 WBC 8.42 RBC 5.31 Hgb 15.5 Hct 44.7 MCV 84.2 MCH 29.2 MCHC 34.7 RDW Std Deviation 39.4 RDW Coeff of Mau 13.1 Plt Count 197 MPV 9.2 Immature Gran % (Auto) 0.2 Neut % (Auto) 70.1 Lymph % (Auto) 20.8 [place] % (Auto) 8.1 Eos % (Auto) 0.4 Baso % (Auto) 0.4 Immature Gran # (Auto) 0.02 Neut # (Auto) 5.91 Lymph # (Auto) 1.75 [place] # (Auto) 0.68 H Eos # (Auto) 0.03 Baso # (Auto) 0.03 PT 10.2 INR 1.0 APTT 23.9 PTT Ratio 0.9 Sodium 129 L Potassium 3.5 Chloride 90 L Carbon Dioxide 30 Anion Gap 9.0 BUN 12 Creatinine 0.96 Est Cr Clr Drug Dosing 105.6 Est GFR ( Amer) 98.5 Est GFR (Non-Af Amer) 85.0 BUN/Creatinine Ratio 12.3 Glucose 114 H Osmolality Lactate Calcium 9.4 Magnesium Lipase 105 Urine Color Urine Appearance Urine pH Ur Specific Portal Urine Protein Urine Glucose (UA) Urine Ketones Urine Blood Urine Nitrite Urine Bilirubin Urine Urobilinogen Ur Leukocyte Esterase Urine RBC Urine WBC Ur Epithelial Cells Ur Renal Epithelial Cell Urine Bacteria Urine Osmolality Ur Random Sodium 08/24/18 08/24/18 08/24/18 16:45 18:00 21:03 WBC RBC Hgb Hct MCV MCH MCHC RDW Std Deviation RDW Coeff of Mau Plt Count MPV Immature Gran % (Auto) Neut % (Auto) Lymph % (Auto) [place] % (Auto) Eos % (Auto) Baso % (Auto) Immature Gran # (Auto) Neut # (Auto) Lymph # (Auto) [place] # (Auto) Eos # (Auto) Baso # (Auto) PT INR APTT PTT Ratio Sodium Potassium Chloride Carbon Dioxide Anion Gap BUN Creatinine Est Cr Clr Drug Dosing Est GFR ( Amer) Est GFR (Non-Af Amer) BUN/Creatinine Ratio Glucose Osmolality 268 L Lactate 1.3 Calcium Magnesium Lipase Urine Color Red Urine Appearance Cloudy H Urine pH 7.5 Ur Specific Portal 1.020 Urine Protein 3+ H Urine Glucose (UA) Negative Urine Ketones Negative Urine Blood 3+ H Urine Nitrite Negative Urine Bilirubin Negative Urine Urobilinogen Negative Ur Leukocyte Esterase Negative Urine RBC >30 H Urine WBC 10-30 H Ur Epithelial Cells 0-5 Ur Renal Epithelial Cell 0-5 Urine Bacteria Negative Urine Osmolality Ur Random Sodium 08/24/18 08/24/18 08/24/18 21:03 21:10 21:10 WBC RBC Hgb Hct MCV MCH MCHC RDW Std Deviation RDW Coeff of Mau Plt Count MPV Immature Gran % (Auto) Neut % (Auto) Lymph % (Auto) [place] % (Auto) Eos % (Auto) Baso % (Auto) Immature Gran # (Auto) Neut # (Auto) Lymph # (Auto) [place] # (Auto) Eos # (Auto) Baso # (Auto) PT INR APTT PTT Ratio Sodium Potassium Chloride Carbon Dioxide Anion Gap BUN Creatinine Est Cr Clr Drug Dosing Est GFR ( Amer) Est GFR (Non-Af Amer) BUN/Creatinine Ratio Glucose Osmolality Lactate Calcium Magnesium 1.9 Lipase Urine Color Urine Appearance Urine pH Ur Specific Portal Urine Protein Urine Glucose (UA) Urine Ketones Urine Blood Urine Nitrite Urine Bilirubin Urine Urobilinogen Ur Leukocyte Esterase Urine RBC Urine WBC Ur Epithelial Cells Ur Renal Epithelial Cell Urine Bacteria Urine Osmolality 638 Ur Random Sodium 142 08/25/18 08/25/18 08/25/18 06:23 06:23 07:35 WBC 9.37 RBC 5.01 Hgb 14.8 Hct 42.3 MCV 84.4 MCH 29.5 MCHC 35.0 RDW Std Deviation 40.1 RDW Coeff of Mau 13.2 Plt Count 196 MPV 9.0 Immature Gran % (Auto) 0.2 Neut % (Auto) 75.6 Lymph % (Auto) 17.5 [place] % (Auto) 6.5 Eos % (Auto) 0.0 Baso % (Auto) 0.2 Immature Gran # (Auto) 0.02 Neut # (Auto) 7.08 H Lymph # (Auto) 1.64 [place] # (Auto) 0.61 H Eos # (Auto) 0.00 Baso # (Auto) 0.02 PT INR APTT PTT Ratio Sodium 128 L Potassium Chloride 92 L Carbon Dioxide 28 Anion Gap 8.0 BUN 10 Creatinine 0.95 Est Cr Clr Drug Dosing 107.7 Est GFR ( Amer) 99.7 Est GFR (Non-Af Amer) 86.1 BUN/Creatinine Ratio 11.0 Glucose 108 H Osmolality Lactate Calcium 9.0 Magnesium Lipase Urine Color Urine Appearance Urine pH Ur Specific Portal Urine Protein Urine Glucose (UA) Urine Ketones Urine Blood Urine Nitrite Urine Bilirubin Urine Urobilinogen Ur Leukocyte Esterase Urine RBC Urine WBC Ur Epithelial Cells Ur Renal Epithelial Cell Urine Bacteria Urine Osmolality Ur Random Sodium Diagnostic Findings Laboratory Results WBC 9.37 K/uL (4.8-10.8) 08/25/18 06:23 RBC 5.01 M/uL (4.7-6.1) 08/25/18 06:23 Hgb 14.8 g/dL (14.0-18.0) 08/25/18 06:23 Hct 42.3 % (42-52) 08/25/18 06:23 MCV 84.4 fL (80-100) 08/25/18 06:23 MCH 29.5 pg (25-34) 08/25/18 06:23 MCHC 35.0 g/dL (32-36) 08/25/18 06:23 RDW Std Deviation 40.1 fL (36.4-46.3) 08/25/18 06:23 RDW Coeff of Mau 13.2 % (11.5-14.5) 08/25/18 06:23 Plt Count 196 K/uL (130-400) 08/25/18 06:23 MPV 9.0 fL (7.4-10.4) 08/25/18 06:23 Immature Gran % (Auto) 0.2 % 08/25/18 06:23 Neut % (Auto) 75.6 % 08/25/18 06:23 Lymph % (Auto) 17.5 % 08/25/18 06:23 [place] % (Auto) 6.5 % 08/25/18 06:23 Eos % (Auto) 0.0 % 08/25/18 06:23 Baso % (Auto) 0.2 % 08/25/18 06:23 Immature Gran # (Auto) 0.02 K/uL (0.00-0.02) 08/25/18 06:23 Neut # (Auto) 7.08 K/uL (1.4-6.5) H 08/25/18 06:23 Lymph # (Auto) 1.64 K/uL (1.2-3.4) 08/25/18 06:23 [place] # (Auto) 0.61 K/uL (0.11-0.59) H 08/25/18 06:23 Eos # (Auto) 0.00 K/uL (0-0.5) 08/25/18 06:23 Baso # (Auto) 0.02 K/uL (0-0.2) 08/25/18 06:23 PT 10.2 Seconds (9.0-12.0) 08/24/18 16:45 INR 1.0 (0.9-1.1) 08/24/18 16:45 APTT 23.9 Seconds (21.0-31.0) 08/24/18 16:45 PTT Ratio 0.9 08/24/18 16:45 Sodium 128 mmol/L (136-145) L 08/25/18 06:23 Potassium mmol/L (3.5-5.1) 08/25/18 07:35 Chloride 92 mmol/L (98-107) L 08/25/18 06:23 Carbon Dioxide 28 mmol/L (21-32) 08/25/18 06:23 Anion Gap 8.0 (3-11) 08/25/18 06:23 BUN 10 mg/dl (7-18) 08/25/18 06:23 Creatinine 0.95 mg/dl (0.6-1.4) 08/25/18 06:23 Est Cr Clr Drug Dosing 107.7 ml/min 08/25/18 06:23 Est GFR ( Amer) 99.7 08/25/18 06:23 Est GFR (Non-Af Amer) 86.1 08/25/18 06:23 BUN/Creatinine Ratio 11.0 (10-20) 08/25/18 06:23 Glucose 108 mg/dl (70-99) H 08/25/18 06:23 Osmolality 268 mOsm/kg (280-300) L 08/24/18 21:03 Lactate 1.3 mmol/L (0.4-2.0) 08/24/18 16:45 Calcium 9.0 mg/dl (8.5-10.1) 08/25/18 06:23 Magnesium 1.9 mg/dl (1.8-2.4) 08/24/18 21:03 Lipase 105 U/L (73-393) 08/24/18 16:45 Urine Color Red 08/24/18 18:00 Urine Appearance Cloudy (Clear) H 08/24/18 18:00 Urine pH 7.5 (4.5-7.5) 08/24/18 18:00 Ur Specific Portal 1.020 (1.000-1.030) 08/24/18 18:00 Urine Protein 3+ (Negative) H 08/24/18 18:00 Urine Glucose (UA) Negative (Negative) 08/24/18 18:00 Urine Ketones Negative (Negative) 08/24/18 18:00 Urine Blood 3+ (Negative) H 08/24/18 18:00 Urine Nitrite Negative (Negative) 08/24/18 18:00 Urine Bilirubin Negative (Negative) 08/24/18 18:00 Urine Urobilinogen Negative (Negative) 08/24/18 18:00 Ur Leukocyte Esterase Negative (Negative) 08/24/18 18:00 Urine RBC >30 /hpf (0-4) H 08/24/18 18:00 Urine WBC 10-30 /hpf (0-5) H 08/24/18 18:00 Ur Epithelial Cells 0-5 /lpf (0-5) 08/24/18 18:00 Ur Renal Epithelial Cell 0-5 /lpf (0-5) 08/24/18 18:00 Urine Bacteria Negative (Negative) 08/24/18 18:00 Urine Osmolality 638 mOsm/kg (500-800) 08/24/18 21:10 Ur Random Sodium 142 mmol/L 08/24/18 21:10 _ (1) Hematuria Hematuria type: gross Glomerular morphologic changes: Qualified Code(s): R31.0 - Gross hematuria
[2018-08-25 08:53] LABS: Potassium 4.1 mmol/L (3.5-5.1)
[2018-08-25] MEDS: MAGNESIUM OXIDE 400 MG TAB PO SCH (09:01)
[2018-08-25] MEDS: SIMVASTATIN 20 MG TAB PO SCH (09:01)
[2018-08-25] MEDS: CIPROFLOXACIN 500 MG TAB PO SCH ×2 (09:01→20:30)
[2018-08-25] MEDS: SENNA 8.6 MG TAB PO SCH ×2 (09:01→20:30)
[2018-08-25] MEDS: IRON POLYSACCHARIDE COMPLEX 150 MG CAPSULE PO SCH ×2 (09:01→21:02)
[2018-08-25] MEDS: PANTOprazole 40 MG TAB PO SCH (09:01)
[2018-08-25] MEDS: CALCIUM 600MG + VIT D 400 IU TAB PO SCH ×2 (09:01→20:28)
[2018-08-25] MEDS: OXcarbazepine 150 MG TABLET PO SCH ×3 (09:01→21:04)
[2018-08-25] MEDS ORDERED: SODIUM CHLORIDE 1 GM TABLET PO SCH (10:00)
--- NOTE | 2018-08-25 16:48 | Hospitalist Progress Note ---
Date of Service August 25, 2018 Assessment & Plan (1) Hematuria: Has had such in the past with negative w/u and negative cystoscopy. Appreciate urology consult. No Rx at this time. Stop aspirin. Serial H/H. Observe. Treat any UTI. Present on Admission?: Yes (2) UTI (urinary tract infection): By report had UTI. I don't have any urine cx results. Day #4 of cipro; stop date 08/28/18. Continue Cipro 500mg po BID. Possible UTI is causing hematuria or at least contributing. (3) Hyponatremia: This could be SIADH or due to chronic HCTZ use, or combo of the 2. HCTZ stopped. Again Na was normal about a year ago and started to drop this fall. Start salt tabs. Repeat BMP in am. If SIADH likely due to trileptal. (4) Hypertension: controlled (5) Hyperlipidemia: Simvastatin (6) BPH (benign prostatic hyperplasia): cont alpha nita (7) Intellectual disability: cont psychotropic meds sister and jail personell updated today if Na is stable overnight then home tomorrow Subjective Patient, due to his intellectual d/o, was nonverbal during the visit. Just shook his head at times; but interestingly did follow commands. His sister was at bedside; she reported he seemed "mildly anxious." Sister unaware of any previous sodium issue. However, we DID receive outside records. Records reviewed from [facility] - Serum Sodium - 11/08/17 - 140. Serum Sodium - 02/20/18 - 138. Serum Sodium - 05/02/18 - 133. per staff continues with mild hematuria (but intermittent) Review of Systems Unobtainable due to cognitive status Physical Exam 2 Vital Signs (Past 24 Hours): Last Vital Signs Temp 37.4 C 08/25/18 11:54 Pulse 100 H 08/25/18 11:54 Resp 18 08/25/18 11:54 BP 149/79 H 08/25/18 11:54 Pulse Ox 95 08/25/18 11:54 Constitutional: well developed, well nourished and + morbidly obese; no acute distress tremors of head/neck ENMT: external ear and nose normal, oropharynx normal Respiratory: normal respiratory effort, lungs clear to auscultation Cardiovascular: Rate/Rhythm: regular rate and regular rhythm Heart Sounds: normal S1 and normal S2 Vessels: posterior tibial pulses present and dorsalis pedis pulses present; no JVD Gastrointestinal (Abdomen): normal bowel sounds, soft, nontender, no hepatosplenomegaly Psychiatric: Orientation: alert; + not oriented x 3 Results & Data Laboratory Results Laboratory Results - last 24 hr 08/25/18 08/25/18 08/25/18 06:23 06:23 07:35 WBC 9.37 RBC 5.01 Hgb 14.8 Hct 42.3 MCV 84.4 MCH 29.5 MCHC 35.0 RDW Std Deviation 40.1 RDW Coeff of Amu 13.2 Plt Count 196 MPV 9.0 Immature Gran % (Auto) 0.2 Neut % (Auto) 75.6 Lymph % (Auto) 17.5 [place] % (Auto) 6.5 Eos % (Auto) 0.0 Baso % (Auto) 0.2 Immature Gran # (Auto) 0.02 Neut # (Auto) 7.08 H Lymph # (Auto) 1.64 [place] # (Auto) 0.61 H Eos # (Auto) 0.00 Baso # (Auto) 0.02 Sodium 128 L Potassium Chloride 92 L Carbon Dioxide 28 Anion Gap 8.0 BUN 10 Creatinine 0.95 Est Cr Clr Drug Dosing 107.7 Est GFR ( Amer) 99.7 Est GFR (Non-Af Amer) 86.1 BUN/Creatinine Ratio 11.0 Glucose 108 H Uric Acid Calcium 9.0 TSH Random Cortisol Specimen Hemolysis 08/25/18 08/25/18 08/25/18 08:21 17:48 17:48 WBC RBC Hgb Hct MCV MCH MCHC RDW Std Deviation RDW Coeff of Mau Plt Count MPV Immature Gran % (Auto) Neut % (Auto) Lymph % (Auto) [place] % (Auto) Eos % (Auto) Baso % (Auto) Immature Gran # (Auto) Neut # (Auto) Lymph # (Auto) [place] # (Auto) Eos # (Auto) Baso # (Auto) Sodium 127 L Potassium 4.1 D Chloride Carbon Dioxide Anion Gap BUN Creatinine Est Cr Clr Drug Dosing Est GFR ( Amer) Est GFR (Non-Af Amer) BUN/Creatinine Ratio Glucose Uric Acid 3.3 Calcium TSH 1.550 Random Cortisol 18.42 Specimen Hemolysis _ (1) Hematuria Hematuria type: gross Glomerular morphologic changes: Qualified Code(s): R31.0 - Gross hematuria (2) UTI (urinary tract infection) Urinary tract infection type: site unspecified Hematuria presence: with hematuria Indwelling urinary catheter type: Encounter type: Qualified Code( s): N39.0 - Urinary tract infection, site not specified; R31.9 - Hematuria, unspecified (3) Hypertension Hypertension type: essential hypertension Qualified Code(s): I10 - Essential (primary) hypertension (4) Hyperlipidemia Hyperlipidemia type: unspecified Qualified Code(s): E78.5 - Hyperlipidemia, unspecified (5) BPH (benign prostatic hyperplasia) Lower urinary tract symptom presence: symptoms absent Lower urinary tract symptom detail: Qualified Code(s): N40.0 - Benign prostatic hyperplasia without lower urinary tract symptoms
[2018-08-25 18:41] LABS: Uric Acid 3.3 mg/dl (2.6-7.2)
[2018-08-25] MEDS: ISOSORBIDE MONO EXTENDED REL 30 MG TABCR PO SCH (20:28)
[2018-08-25] MEDS: SODIUM CHLORIDE 1 GM TABLET PO SCH (20:31)
[2018-08-25] MEDS: TAMSULOSIN HCL 0.4 MG CAP PO SCH (21:02)
[2018-08-25] MEDS: SODIUM CHLORIDE 0.65% NA SOLN 45 ML (OCEAN) SCH (21:20)
[2018-08-25] MEDS ORDERED: ACETAMINOPHEN 325 MG TAB PO PRN (23:42)
[2018-08-26 06:33] LABS: BUN Creatinine Ratio 12.1 (10-20); Calcium 8.7 mg/dl (8.5-10.1); Creatinine Clr Calc Pharmacy 114.9 ml/min; Est GFR (Non-African American) 92.3; Potassium 3.6 mmol/L (3.5-5.1)
[2018-08-26 06:50] LABS: Mean Corpuscular Hgb Conc 34.9 g/dL (32-36)
[2018-08-26 07:00] LABS: Nucleated RBC # (auto) 0.19 K/uL (0-0); Nucleated RBC % (auto) 2.3 %
[2018-08-26 07:13] LABS: Hematocrit (blood only) 41.5 % (42-52); Hemoglobin 14.5 g/dL (14.0-18.0); Mean Corpuscular Volume 84.5 fL (80-100); RDW Coefficient of Variation 13.5 % (11.5-14.5); RDW Standard Deviation 41.4 fL (36.4-46.3); Red Blood Count 4.91 M/uL (4.7-6.1); White Blood Count 8.55 K/uL (4.8-10.8)
[2018-08-26] MEDS: SODIUM CHLORIDE 1 GM TABLET PO SCH (09:51)
[2018-08-26] MEDS: MAGNESIUM OXIDE 400 MG TAB PO SCH (09:52)
[2018-08-26] MEDS: CALCIUM 600MG + VIT D 400 IU TAB PO SCH (09:52)
[2018-08-26] MEDS: OXcarbazepine 150 MG TABLET PO SCH (09:52)
[2018-08-26] MEDS: SIMVASTATIN 20 MG TAB PO SCH (09:52)
[2018-08-26] MEDS: IRON POLYSACCHARIDE COMPLEX 150 MG CAPSULE PO SCH (09:52)
[2018-08-26] MEDS: PANTOprazole 40 MG TAB PO SCH (09:52)
[2018-08-26] MEDS: CIPROFLOXACIN 500 MG TAB PO SCH (09:52)
[2018-08-26] MEDS: SENNA 8.6 MG TAB PO SCH (09:52)
--- NOTE | 2018-08-27 12:34 | Discharge Summary ---
Date of Service date of admission - August 25, 2018 date of discharge - August 26, 2018 Admission HPI Per Admitting Provider Patient is a 63yo male with history of BPH, HTN, Hyperlipidemia and developmental delay presenting with gross hematuria. Majority of history obtained through discussion with patient's bilingual case manager as patient is unable to provide reliable history. Per report, patient with a longstanding history of gross hematuria. He established care with Urology in October 2016. He follows with Dr. Contreras. Patient had a cystoscopy performed 26 Mar 2018 which revealed wide caliber thin urethral strictures x 2. Normal bladder without tumor or other abnormalities. No intervention was performed. Patient was seen by Dr. Contreras for a UTI. He was started on a 7-day course of Cipro 500mg po BID which started on 08/22/18. He had a large volume of gross hematuria on 08/22/18 causing him to leave his day program. On 08/23/18 no bleeding was reported. However, today patient again had gross hematuria that was not resolving. Patient is unable to say if clots were present. He denies fevers, chills, abdominal or flank pain. Denies dysuria or difficulty urinating. Denies CP, palpitations, dyspnea or dizziness. No additional complaints at this time. ER Course: NSS x 1500mL Principal Diagnosis gross hematuria, resolving Discharge Exam Constitutional well developed, well nourished and + morbidly obese; no acute distress intellectual disability prohibits full, normal conversation but he does follow commands; mild tremor of head/neck ENMT external ear and nose normal, oropharynx normal Respiratory normal respiratory effort, lungs clear to auscultation Cardiovascular Rate/Rhythm: regular rate and regular rhythm Heart Sounds: normal S1 and normal S2; no murmur Vessels: posterior tibial pulses present and dorsalis pedis pulses present; no JVD Gastrointestinal (Abdomen) normal bowel sounds, soft, nontender, no hepatosplenomegaly Psychiatric Orientation: alert and oriented to person Discharge Data Allergies Allergy/AdvReac Type Severity Reaction Status Date / Time No Known Allergies Allergy Unverified 08/24/18 17:21 Consultations [facility] Ordered Studies CT abd/pelvis - IMPRESSION: 1. No urinary calculi or hydronephrosis. 2. Decreased sensitivity for detection of urothelial lesions on this unenhanced exam. 3. No acute process within the abdomen or pelvis. No bowel obstruction. Normal appendix. Hospital Course (1) Hematuria: Has had such in the past (2018) with negative work-up and negative cystoscopy. CT abd/pelvis this admission did not show acute findings. Seen by [facility] -- since hematuria was already starting to improve no specific treatment was recommended while here. The patient had been placed on a course of cipro for presumed UTI prior to transfer to [facility] and this was simply continued. We did ascertain from [facility] that a urine culture from several days prior was indeed negative , however. Urology advised discontinuation of aspirin in light of the hematuria. Hemoglobin remained stable in the range of 14.5 to 15.5 while here. The patient will follow with Dr. Arnulfo Contreras in September 2018 at [facility]. (2) UTI (urinary tract infection): The patient was continued on cipro for presumed UTI. Stop date for the cipro was 08/28/18. Urine culture from [facility] from several days prior to admission was negative by report. Even despite the negative culture, if there was any infectious process, it is possible that this contributed to his hematuria. (3) Hyponatremia: This could have been due to SIADH or due to chronic HCTZ use, or combo of the 2. HCTZ was stopped. Records were obtained from [facility]. Sodium levels were as follows --- 11/08/17 - 140. 7/ - 138. 9/ - 133. Lowest sodium level here was 127, improving to 131 with salt tablets by time of discharge. If the patient does have SIADH it is likely due to oxcarbazepine. I recommended a 7-day course each of NaCl tablet 1gm as well as lasix 20mg daily. He will need a repeat BMP in 3-4 days post-discharge to ensure stable sodium level. Again HCTZ was discontinued. (4) Hypertension: Labile at times during his stay but this was in the setting of the HCTZ being stopped. (5) Hyperlipidemia: Continue Simvastatin. (6) BPH (benign prostatic hyperplasia): Continue alpha nita as previous. (7) Intellectual disability: He remains on several psychotropic meds. Total Time Total Time Spent Total Time Spent (In Minutes): 45 Total Time Includes: Examination of the Patient, Discharge Planning and Medication Reconciliation Discharge Plan Discharge Items Patient Disposition: Personal Residential Reason For Visit: HEMATURIA Discharge Diagnosis: Hematuria - improving. Hyponatremia (low sodium) - improving. Recent suspected UTI - resolving. Discharge Goals: Diagnostic testing and Therapeutic intervention Activity: Resume your previous activity Non-emergency contact: Primary Care Provider and Urologist Call non-emergency contact if: you have any medication questions, your symptoms worsen and your temperature is above 100.5 Follow-up/Referrals: Alexis Contreras MD [Physician] - (see Dr. Contreras, [facility] , within 2 weeks; diagnosis - hematuria) Bubba Howard [Primary Care Provider] - (see Dr. Howard, family doctor, in 3 days to recheck sodium level ) Diet: Heart Healthy Addtl Provider Instructions: From Lance Schwartz - Hospitalist - You were admitted to [facility] for hematuria (blood in the urine). This improved while here. A CAT scan of the abdomen and pelvis was normal. You were seen by the urology team - they recommended follow-up in the office. It is possible the blood was from a urinary tract infection - please finish the course of cipro antibiotic that was previously prescribed. You also had low sodium (hyponatremia). We obtained your records [facility]. Your last sodium level was mildly low at 133 in the fall of 2018. Thus , this is chronic, but was worse than previous. You improved with salt tablets. The sodium level may be low due to your oxcarbazepine. It may also have been low due to HCTZ use. Either way the sodium level improved from 127 to 131. At this time I recommend - 1. stop your HCTZ (hydrochlorothiazide). 2. start furosemide 20mg by mouth every morning for 7 days starting 08/27/18. 3. start salt tablet 1 gram daily for 7 days starting 08/27/18. 4. have a repeat bmp (basic metabolic panel) done in 3 days through your family doctor to recheck the sodium level. 5. have a repeat CBC in 3 days to recheck your blood count due to the recent bleeding. 6. STOP your aspirin due to the recent bleeding. It may be possible to resume it later on after getting clearance from urology. This will be decided during a future appointment. Follow-up - 1. see [facility] within 2 weeks (Dr. Arnulfo Contreras). 2. see your family doctor, Dr. Howard, within 3 days. Return to [facility] or [facility] if - 1. you have severe bleeding from the bladder. 2. you have fever over 100.5 degrees. 3. you have severe abdominal pain, back pain, vomiting, or diarrhea. 4. any other concerns. Prescriptions: New sodium chloride 1 gram Tablet 1 g PO QAM 7 Days Qty: 7 RF: 0 furosemide [Lasix] 20 mg tablet 20 mg PO QAM 7 Days Qty: 7 RF: 0 Continue oxcarbazepine 150 mg tablet 150 mg PO TID RF: 0 sennosides [Senna Lax] 8.6 mg Tablet 8.6 mg PO BID RF: 0 polysaccharide iron complex [iFerex 150] 150 mg iron Capsule 150 mg PO BID RF: 0 isosorbide mononitrate 30 mg Tablet Extended Release 24 Hr 30 mg PO HS RF: 0 ciprofloxacin HCl 500 mg tablet 500 mg PO BID RF: 0 tamsulosin 0.4 mg capsule 0.4 mg PO HS RF: 0 simvastatin 20 mg Tablet 20 mg PO DAILY RF: 0 esomeprazole magnesium 40 mg capsule,delayed release(DR/EC) 40 mg PO DAILY RF: 0 buspirone 10 mg tablet 10 mg PO TID RF: 0 nitroglycerin 0.4 mg Tablet, Sublingual 0.4 mg Sublingual UD RF: 0 metoprolol tartrate 25 mg tablet 12.5 mg PO BID RF: 0 sodium chloride-aloe vera [[place] Saline Gel] [place],Non-Aerosol 1 spray INTRANASAL HS RF: 0 calcium carbonate-vitamin D3 [Calcium 600 + D(3)] 600 mg(1,500mg) -400 unit Tablet 1 tab PO BID RF: 0 magnesium oxide 400 mg magnesium Tablet 400 mg PO DAILY RF: 0 Discontinued aspirin [Aspirin Low Dose] 81 mg Tablet,Delayed Release (Dr/Ec) 81 mg PO DAILY RF: 0 hydrochlorothiazide 12.5 mg Capsule 12.5 mg PO DAILY RF: 0 Stand-Alone Forms: [facility] Discharge Orders: Discharge Order (Routine); Ordered 08/26/18 Ordered By: Lance Schwartz Admission Data Admit Date/Time: 08/24/18 19:35 Attending Provider: Lance Schwartz Admit Provider: Meenu Hartman Primary Care Provider: Bubba Howard Other Providers: Meenu Hartman ; Kalin Solorio ; Lupillo Hendricks ; Mark Livingston I. ; Alexis Contreras ; Jazmin Navarro ; Ethan Gupta II ; Anne-Marie Arellano Service: Medical Other Interventions: Discharge Summary Assessment (RN) Last Done: 08/26/18 11:07 Pending Studies at Discharge: No DC Date/Time DO NOT enter until pt leaves facility: 08/26/18 12:02
== END 2018-08-26 12:02 | disposition home or self-care (01) ==
LOC: ED 15:46 → 3W 15:46 → SUATTDRO 19:35 → 3W 20:17 → 3N 08-25 19:39